=== PATIENT | female | born 1965 | race Caucasian/White ===

== ENCOUNTER → 2024-02-22 09:11 | Outpatient (REF) | payer OTHER, SELFPAY | LOC: WDC 09:11 | PROVIDERS: ATTENDING PHYSICIAN Internal Medicine | DX: Z12.31 Encounter for screening mammogram for malignant neoplasm of breast (principal) | CPT/HCPCS: 77063; 77067 ==

== ENCOUNTER → 2024-11-05 10:38 | Outpatient (REF) | payer OTHER, SELFPAY | LOC: RAD 10:38 | PROVIDERS: ATTENDING PHYSICIAN Obstetrics & Gynecology Gynecologic Oncology; FAMILY PHYSICIAN Internal Medicine | DX: D25.9 Leiomyoma of uterus, unspecified (principal); Z80.3 Family history of malignant neoplasm of breast; Z80.41 Family history of malignant neoplasm of ovary | CPT/HCPCS: 76830; 76856 ==

== ENCOUNTER → 2024-11-15 18:21 | Outpatient (REF) | payer OTHER, SELFPAY | LOC: MRI 3T 18:21 | PROVIDERS: ATTENDING PHYSICIAN Obstetrics & Gynecology Gynecologic Oncology; FAMILY PHYSICIAN Internal Medicine | DX: D25.9 Leiomyoma of uterus, unspecified (principal); Z80.3 Family history of malignant neoplasm of breast; Z80.41 Family history of malignant neoplasm of ovary | CPT/HCPCS: 77049; A9585 ==

== ENCOUNTER → 2024-12-06 07:53 | Outpatient (REF) | payer OTHER, SELFPAY | LOC: RAD 07:53 | PROVIDERS: ATTENDING PHYSICIAN Obstetrics & Gynecology Gynecologic Oncology; FAMILY PHYSICIAN Internal Medicine | DX: R10.30 Lower abdominal pain, unspecified (principal); Z80.3 Family history of malignant neoplasm of breast; Z80.41 Family history of malignant neoplasm of ovary; D25.9 Leiomyoma of uterus, unspecified | CPT/HCPCS: 74177; Q9967 ==

== ENCOUNTER → 2024-12-17 14:40 | Outpatient (REF) | payer OTHER, SELFPAY | LOC: WDC 14:40 | PROVIDERS: ATTENDING PHYSICIAN Surgery; FAMILY PHYSICIAN Internal Medicine | DX: R92.8 Other abnormal and inconclusive findings on diagnostic imaging of breast (principal) | CPT/HCPCS: 76642 ==

== ENCOUNTER → 2025-01-24 12:30 | Outpatient (REF) | payer OTHER, SELFPAY ==
[2025-01-24 13:47] VITALS: BMI 24.3
== END ==
LOC: SDSPAT 12:30
PROVIDERS: ATTENDING PHYSICIAN Obstetrics & Gynecology Gynecologic Oncology; FAMILY PHYSICIAN Internal Medicine
DX: D25.1 Intramural leiomyoma of uterus (principal); Z80.41 Family history of malignant neoplasm of ovary
CPT/HCPCS: 86850; 86900; 86901; 93005

== ENCOUNTER 2025-02-15 02:41 | Emergency (ER) | payer OTHER, SELFPAY ==
[2025-02-15 02:52] VITALS: BP 154/83
--- NOTE | 2025-02-15 03:19 | ED.GENMED ---
History of Present Illness
General
Chief Complaint: Flank Pain
Time Seen by Provider: 02/15/25 03:19
History of Present Illness
History of Present Illness:
TIME OF INITIAL EVALUATION
- 3:25 AM
REVIEW OF OLD RECORDS
- The patient has history of kidney stones and is a diabetic. CAT scan from December of this year showed a small intrarenal left-sided kidney stone.
Note:
CHIEF COMPLAINT(S)
Left flank pain.
HISTORY OF PRESENT ILLNESS
The patient is a 59-year-old female presenting with an abrupt onset of left-sided flank pain that began approximately three hours ago, around 12:30 AM. The patient reports that the discomfort is localized to the left side. She has a past medical
history of kidney stones, with a prior computed tomography (CT) scan in December revealing a small stone within the kidney. She had experienced similar pain since October 2019. The flank pain does not cause discomfort upon surface touch but does intensify
with deeper palpation. She describes some urinary hesitancy, stating, �I feel like I can go and then I don�t go.� There is no discomfort when urinating. The patient denies taking any pain medication or experiencing fever associated with this episode.
EXTERNAL RECORDS REVIEWED
The patient had a prior CT scan in December which showed a small stone within the kidney.
PHYSICAL EXAM
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
- HEENT: Moist oral mucosa
- Cardiovascular: No murmurs, normal heart rate, regular rhythm, No chest wall tenderness
- Pulmonary: No respiratory distress, breath sounds are clear and equal
- Abdomen: Soft with no peritoneal signs, mild left-sided abdominal and left flank tenderness
- Neurologic: Excellent strength all extremities, no coordination deficits
- Psychiatric: Appropriate mental status, normal insight and judgement
- Extremities: Nontender, no edema, moves all extremities equally
- Skin: No rash, no lesions
PLAN
The plan is to repeat the CT scan to assess if the kidney stone has moved into the ureter. A urine sample will be collected for further analysis. Pain management will be initiated with medication administration.
DIFFERENTIAL DIAGNOSIS
The Differential Diagnosis includes, in no particular order and is not limited to:
1. Nephrolithiasis (Kidney stone)
2. Pyelonephritis
3. Ureteral obstruction
4. Renal colic
5. Urinary tract infection
6. Hydronephrosis
7. Musculoskeletal pain
8. Appendicitis
9. Diverticulitis
10. Abdominal aortic aneurysm (less likely but considered in differential)
RADIOLOGY
- CT imaging obtained, mild left hydroureteronephrosis is noted however there is no sign of ureteral stone
EKG
- Not indicated
LABS
- Urinalysis shows 2+ leukocyte esterase and 11-15 white cells per high-powered field, 4+ blood is noted, CBC and chemistries unremarkable
UPDATE
-SUMMARY OF ENCOUNTER
The patient, a 59-year-old female with a history of kidney stones, presented with abrupt left-sided flank pain. A CT scan was conducted, and external records revealed a small stone in the left kidney, but not currently causing obstruction. The
ureter appeared slightly swollen, suggestive of a possible recently passed stone. Urinalysis showed questionable signs of a urinary tract infection. Blood work results were normal. Based on these findings, an antibiotic, cephalexin, was administered
in the emergency department, and a prescription was sent to the patients pharmacy.
DISPOSITION
Discharge.
ASSESSMENT
Flank pain likely related to a urinary tract infection and possible recently passed kidney stone.
PLAN
Prescribe cephalexin and consider follow-up with a urologist.
INDEPENDENT REVIEW OF LABS AND INTERPRETATION OF TESTS
My independent review of urinalysis indicates questionable signs of a urinary tract infection. My independent CT interpretation is that there is a small stone in the left kidney not causing current obstruction and the ureter is slightly swollen.
PATIENT EDUCATION AND COUNSELING
The patient was advised on the nature of their condition, given information regarding antibiotic treatment, and the importance of follow-up care with a urologist.
FOLLOW-UP INSTRUCTIONS
The patient was advised to follow up with a urologist, specifically mentioned Dr. Friedman.
MEDICATION RECONCILIATION
Cephalexin administered in the emergency department and a prescription was provided to the pharmacy.
MEDICAL DECISION MAKING
-Complexity of Data Reviewed: Chronic conditions affecting care includes a history of kidney stones. Differential diagnosis list includes nephrolithiasis, pyelonephritis, ureteral obstruction, renal colic, urinary tract infection, hydronephrosis,
musculoskeletal pain, appendicitis, diverticulitis, and abdominal aortic aneurysm.
-Data:
Category 1
External record reviewed: Patients prior CT scan from December showed a small stone in the kidney.
Category 2
My independent interpretation of CT scan confirms a small left kidney stone and slightly swollen ureter.
-Risk:
Consideration of Admission/Observation: Escalation of care including admission/observation was considered given the complexity and risk of the patients presenting complaint, exam findings, and/or their underlying comorbidities. However, ultimately I
feel the patient is safe for outpatient management with close follow-up. Reasoning: Work-up reassuring, does not reveal any acute life/organ threatening processes, patients symptoms well controlled upon reevaluation, reexamination is reassuring,
vitals are stable, patient agreeable with discharge, reliable for follow-up.
DIAGNOSIS
Urinary tract infection (N39.0)
Flank pain (R10.9)
History of nephrolithiasis (Z87.442)
The patient appears very comfortable on reassessment. Will place on antibiotics. She is to follow-up with urology as well.
Past History
Past History
ED Past Medical History: Psychiatric (ADD)
ED Past Surgical History: None
Social History
Tobacco: Non-smoker
Alcohol: Occasional
Personal:
Living: with family
Employment: Employed
Family History
Family History: Other (Noncontributory)
Phy Exam
Physical Exam
Physical Exam:
See HPI
Course
Orders/Labs/Results
Orders:
Orders
02/15/25 03:24
CT Abd/pel Without Iv Or Oral Urgent
Comment:
Reason For Exam: abrupt severe L pain
0.9% Sodium Chloride 1000 ml [Nss] 1,000 ml IV BOLUS
Ketorolac [Toradol] 15 mg IV NOW STA
02/15/25 03:40
Complete Blood Count/With Diff Urgent
Comprehensive Metabolic Panel Urgent
Urinalysis Reflex To Culture Urgent
Date Specimen was Collected: 02/15/25
Time Specimen was Collected: 03:30
Urine Microscopic Reflex Cult Urgent
Urine Culture Urgent
SHADIA Source: U
Specimen Description:
Date Specimen was Collected: 02/15/25
Time Specimen was Collected: 03:30
Abnormal Lab Results
02/15/25
03:40
Chloride 108 H mmol/L
(98-107)
BUN 22 H mg/dl
(7-17)
Glucose 107 H mg/dl
(70-99)
Urine Ketones 1+ A
(Negative)
Ur Occult Blood Reflex 4+ A
(Negative)
Leukocyte Esterase Rfl 2+ A
(Negative)
Urine RBC 3-6 A /HPF
(0-2)
Urine WBC (Reflex) 11-15 A /HPF
(0-5)
Urine Bacteria (Reflex) Few A
(Negative)
Urine Albumin (Reflex) 2+ A
(Neg - Trace)
02/15/25 03:40
02/15/25 03:40
Vital Signs
Initial and Last Documented VS:
Initial Vital Signs
Temp Pulse Resp BP Pulse Ox
36.3 C 51 16 154/83 97
02/15/25 02:52 02/15/25 02:52 02/15/25 02:52 02/15/25 02:52 02/15/25 02:52
Last Documented Vital Signs
Temp Pulse Resp BP Pulse Ox
36.3 C 64 14 122/79 99
02/15/25 02:52 02/15/25 04:50 02/15/25 04:50 02/15/25 04:50 02/15/25 04:50
*Pulse Oximetry
SaO2: 97
Oxygen Mode of Delivery: Room air
Patient hypoxic: no
*Critical Care Note
Total Time (30-74mins, 75-104mins- exclusive of procedures): Not Applicable
ED Attending Note
-
Portions of this chart may have been created with voice recognition software.� Occasional wrong word or��sound alike� substitutions may have occurred due to the inherent limitations of voice recognition software.
Discharge Plan
Departure
Patient Disposition: Home (Routine Discharge)
Date of Disposition: 02/15/25
Time of Disposition: 05:33
Patient with high blood pressure during this ER visit?: Yes
Discharge Problem:
Urinary tract infection
Prescriptions:
New
cephalexin 500 mg tablet
500 mg PO TID Qty: 21 0RF
No Action
multivitamin Tablet
1 tab PO DAILY
metformin 500 mg Tablet
500 mg PO HS
dextroamphetamine-amphetamine 20 mg capsule,extended release 24hr
20 mg PO DAILY
prednisone 10 mg Tablet
30 mg PO DAILY
Patient Comments:
pt on a tapering dose
Referrals:
Ernst Friedman MD [Active, Urology]
UNKNOWN - PT DOES,NOT KNOW [Family Provider]
Activity Restrictions/Additional Instructions:
The CAT scan tonight does not show any stone that is stuck in the ureter. The radiologist however did note some 'mild left hydroureteronephrosis'�this can be seen with somebody who recently passed a kidney stone. Follow-up Dr. Friedman, return here
if worse, I am sending a prescription for antibiotics to your pharmacy.
Interventions
Interventions:
*Risk Screen - Suicide Last Done: 02/15/25 02:52
*General Assessment Last Done: 02/15/25 03:31
*Neglect/Abuse Screening Last Done: 02/15/25 03:31
*ED- Fall Risk Assessment Last Done: 02/15/25 03:37
CJ-Aetsow-Eryatdnqdi Assessment Last Done: 02/15/25 03:57
ED-Female Genitourinary Assessment Last Done: 02/15/25 03:57
Discharge Date and Time
Print Language: GERMAN
[2025-02-15 03:31] VITALS: BMI 26.1
[2025-02-15] MEDS: NSS 1000 IV (03:40)
[2025-02-15] MEDS: TORADOL 15 MG IV (03:41)
--- NOTE | 2025-02-15 03:59 | EDRN ---
Pt woke at 0030 with L side flank pain radiating into L abdomen and groin. Pt drank a lot of water. Urinary frequency and burning. Nausea no vomiting. No pain medications taken at home. Pt denies cp, sob, fever/chills/cough. Hx of L side
kidney stone that she was told she passed few years ago.
[2025-02-15 04:05] LABS: Hematocrit 39.1 % (37.0-47.0); Hemoglobin 13.1 g/dL (12.0-16.0); Mean Corp Hgb Conc. 33.5 g/dL (33.0-37.0); Mean Corpuscular Volume 87.1 fL (81.0-99.0); Nucleated Red Blood Cells % 0 %; Platelet Count 248 10^3/uL (130-400); Red Cell Dist. Width 12.4 % (11.5-14.5)
[2025-02-15 04:23] LABS: ALT (SGPT) 12 U/L (0-35); AST (SGOT) 20 U/L (14-36); Albumin 4.6 g/dl (3.5-5.0); Alkaline Phosphatase 53 U/L (38-126); Blood Urea Nitrogen 22 mg/dl (7-17); Calcium 9.1 mg/dl (8.4-10.2); Carbon Dioxide 26 mmol/L (22-30); Chloride 108 mmol/L (98-107); Estimated Creatinine Clearance 79 ml/min; Glucose 107 mg/dl (70-99); Potassium 4.3 mmol/L (3.5-5.1); Sodium 139 mmol/L (135-145); Total Protein 7.6 g/dl (6.3-8.2); eGFR > 60.00
[2025-02-15 04:50] VITALS: BP 122/79
[2025-02-15 04:56] LABS: Urine Character Slightly Cloudy (Clear)
== END 2025-02-15 05:44 | disposition home or self-care (01) ==
LOC: EMR 02:41
PROVIDERS: EMERGENCY PHYSICIAN Emergency Medicine
DX: N39.0 Urinary tract infection, site not specified (principal); E11.9 Type 2 diabetes mellitus without complications; N20.0 Calculus of kidney
CPT/HCPCS: 99284; 96374; 96361; 74176; 80053; 81003; 81015; 85025; 87077; 87086; 87186

== ENCOUNTER → 2025-02-24 17:22 | Outpatient (REF) | payer OTHER, SELFPAY | LOC: WDC 17:22 | PROVIDERS: ATTENDING PHYSICIAN Internal Medicine | DX: Z12.31 Encounter for screening mammogram for malignant neoplasm of breast (principal); R92.2 Inconclusive mammogram | CPT/HCPCS: 77063; 77067 ==